=== PATIENT | female | born 1960 | race Caucasian/White ===

== ENCOUNTER 2022-05-23 08:28 | Observation (INO) ==
[2022-05-23] MEDS ORDERED: Ketorolac 30 MG/ML VIAL IVP ONE (08:45)
[2022-05-23] MEDS ORDERED: 0.9 % Sodium Chloride 1,000 ML IVC ONE (08:45)
[2022-05-23 09:13] LABS: Basophils % 0.3 %; Eosinophils % 0.1 %; Hematocrit 35.1 % (35.3-44.9); Hemoglobin 11.7 g/dL (11.5-15.4); Immature Granulocytes % 0.1 % (0-4); Lymphocytes # 2.1 K/mcL (0.6-4.6); Lymphocytes % 15.4 %; Mean Corpuscular HGB Conc 33.3 g/dL (31.6-35.5); Mean Corpuscular Hemoglobin 30.7 pg (28.0-33.3); Mean Corpuscular Volume 92.1 fL (83.0-100.0); Mean Platelet Volume 8.8 fL (9.4-12.4); Monocytes # 0.9 K/mcL (0.0-1.3); Monocytes % 6.5 %; Neutrophils # 10.8 K/mcL (1.6-8.9); Platelet Count 246 K/mcL (140-400); Red Blood Count 3.81 M/mcL (3.82-4.97); Segmented Neutrophils % 77.6 %; White Blood Count 13.9 K/mcL (4.3-11.1)
[2022-05-23 09:20] LABS: INR 1.1; Prothrombin Time 12.8 Seconds (9.4-12.1)
[2022-05-23 09:28] LABS: BUN/Creatinine Ratio 12 (6-26); Blood Urea Nitrogen 9 mg/dL (8-23); Carbon Dioxide 25 mEq/L (23-29); Chloride 95 mEq/L (98-107); Glucose 93 mg/dL (70-105); Osmolality,Calculated 264 (280-300); Sodium 128 mEq/L (136-145)
[2022-05-23 09:31] LABS: Troponin I < 0.03 ng/mL (< 0.04)
[2022-05-23] MEDS ORDERED: Ipratropium 1 PUFF INHALER IH PRN ×2 (09:37→14:45)
[2022-05-23] MEDS ORDERED: Ketorolac 60 MG/2 ML VIAL IM ONE (09:46)
[2022-05-23] MEDS ORDERED: *HR* LORazepam 1 MG TABLET PO ONE (09:53)
[2022-05-23] MEDS ORDERED: Azithromycin 500 MG in 0.9 % Sodium Chloride 250 ML IVPB ONE (10:04)
[2022-05-23] MEDS ORDERED: cefTRIAXone 1,000 MG in 0.9 % Sodium Chloride Mini Bag 100 ML IVPB ONE (10:04)
[2022-05-23] MEDS ORDERED: Ondansetron ODT 4 MG TAB.RAPDIS SL PRN (15:34)
[2022-05-23] MEDS ORDERED: Acetaminophen/Butalbital/CaffeineTABLET PO PRN (15:54)
[2022-05-23] MEDS ORDERED: Patient Taking Own Medication 1 EACH PO PRN (16:00)
[2022-05-23] MEDS: Doxycycline 100 MG in 0.9 % Sodium Chloride Mini Bag 100 ML IVPB SCH (18:07)
[2022-05-23] MEDS: Ipratropium 1 PUFF INHALER IH SCH (19:55)
[2022-05-23] MEDS: Budesonide/Formoterol 160/4.5 1 PUFF INH IH SCH (19:55)
[2022-05-23] MEDS: levETIRAcetam 250 MG TABLET PO SCH (20:17)
[2022-05-23] MEDS: Divalproex (24 HR) 250 MG TABLET PO SCH (20:18)
[2022-05-23] MEDS: Melatonin 3 MG TABLET PO SCH (20:18)
[2022-05-23] MEDS: Ziprasidone 20 MG CAPSULE PO SCH (20:19)
[2022-05-23] MEDS: Lactulose Oral Soln 20 GM/30 ML UDC PO SCH (20:19)
[2022-05-23] MEDS: Folic Acid 1 MG TABLET PO SCH (20:19)
[2022-05-23] MEDS ORDERED: NON-FORMULARY MEDICATION 1 EACH EACH (Fluticasone Propionate [Flovent Diskus] 50 MCG Blst. IH SCH (21:00)
[2022-05-24] MEDS: Patient Taking Own Medication 1 EACH PO SCH ×4 (02:36→19:52)
[2022-05-24 05:40] LABS: Basophils % 0.1 %; Hematocrit 36.5 % (35.3-44.9); Hemoglobin 12.3 g/dL (11.5-15.4); Immature Granulocytes % 0.4 % (0-4); Lymphocytes # 1.6 K/mcL (0.6-4.6); Lymphocytes % 17.9 %; Mean Corpuscular HGB Conc 33.7 g/dL (31.6-35.5); Mean Corpuscular Hemoglobin 30.5 pg (28.0-33.3); Mean Corpuscular Volume 90.6 fL (83.0-100.0); Monocytes # 0.4 K/mcL (0.0-1.3); Monocytes % 4.2 %; Platelet Count 268 K/mcL (140-400); Red Blood Count 4.03 M/mcL (3.82-4.97); Red Cell Distribution Width 12.6 % (11.5-14.5); Segmented Neutrophils % 77.4 %; White Blood Count 9.1 K/mcL (4.3-11.1)
[2022-05-24] MEDS: Doxycycline 100 MG in 0.9 % Sodium Chloride Mini Bag 100 ML IVPB SCH (05:40)
[2022-05-24 05:57] LABS: Alanine Aminotransferase 11 Units/L (7-52); Albumin 3.8 g/dL (3.5-5.7); Albumin/Globulin Ratio 1.4 (1.1-2.2); Alkaline Phosphatase 105 Units/L (34-104); Aspartate Amino Transferase 11 Units/L (13-39); BUN/Creatinine Ratio 14 (6-26); Bilirubin,Total 0.3 mg/dL (0.3-1.0); Blood Urea Nitrogen 10 mg/dL (8-23); Calcium 9.1 mg/dL (8.6-10.3); Carbon Dioxide 23 mEq/L (23-29); Chloride 96 mEq/L (98-107); Globulin 2.8 g/dL (2.4-3.5); Glucose 173 mg/dL (70-105); Magnesium 1.7 mg/dL (1.6-2.6); Osmolality,Calculated 265 (280-300); Potassium 3.9 mEq/L (3.5-5.1); Sodium 126 mEq/L (136-145); Total Protein 6.6 g/dL (6.4-8.9)
[2022-05-24] MEDS ORDERED: Menthol 1 EACH LOZENGE PO PRN (06:45)
[2022-05-24] MEDS: Ipratropium 1 PUFF INHALER IH SCH ×2 (07:50→21:54)
[2022-05-24] MEDS: Budesonide/Formoterol 160/4.5 1 PUFF INH IH SCH ×2 (07:51→21:55)
[2022-05-24] MEDS: levETIRAcetam 250 MG TABLET PO SCH ×2 (08:12→19:50)
[2022-05-24] MEDS: Cholecalciferol (D-3) 1,000 UNIT (25MCG) TABLET PO SCH (08:12)
[2022-05-24] MEDS: methocarbamoL 500 MG TABLET PO SCH (08:13)
[2022-05-24] MEDS: MOM Conc 10 ML UD.LIQ PO SCH ×2 (08:13→08:30)
[2022-05-24] MEDS: Folic Acid 1 MG TABLET PO SCH ×2 (08:13→19:51)
[2022-05-24] MEDS: Lactulose Oral Soln 20 GM/30 ML UDC PO SCH ×4 (08:13→20:52)
[2022-05-24] MEDS: Divalproex (24 HR) 250 MG TABLET PO SCH ×2 (08:13→19:50)
[2022-05-24] MEDS: Thiamine (B-1) 100 MG TABLET PO SCH (08:13)
[2022-05-24] MEDS: Loratadine 10 MG TABLET PO SCH (08:13)
[2022-05-24] MEDS: Ziprasidone 20 MG CAPSULE PO SCH ×3 (08:14→19:50)
[2022-05-24] MEDS ORDERED: dexAMETHasone 4 MG TABLET PO SCH (09:00)
[2022-05-24] MEDS ORDERED: Doxycycline 100 MG CAPSULE PO SCH (09:00)
[2022-05-24] MEDS: Acetaminophen 325 MG TABLET PO PRN (16:14)
[2022-05-24 19:38] VITALS: RESP 16
[2022-05-24] MEDS: levoFLOXacin 750 MG TABLET PO SCH (19:50)
[2022-05-24] MEDS: Melatonin 3 MG TABLET PO SCH (19:50)
[2022-05-25] MEDS: Acetaminophen 325 MG TABLET PO PRN (01:53)
[2022-05-25 05:12] VITALS: BP 116/75; PULSE 88; TEMP 97.8
[2022-05-25 05:41] LABS: BUN/Creatinine Ratio 9 (6-26); Blood Urea Nitrogen 6 mg/dL (8-23); Calcium 9.3 mg/dL (8.6-10.3); Carbon Dioxide 21 mEq/L (23-29); Chloride 98 mEq/L (98-107); Glucose 103 mg/dL (70-105); Osmolality,Calculated 260 (280-300); Potassium 4.4 mEq/L (3.5-5.1); Sodium 126 mEq/L (136-145)
[2022-05-25] MEDS ORDERED: *HR* Enoxaparin 40 MG/0.4 ML SYRINGE SQ SCH (06:00)
[2022-05-25 06:53] LABS: Basophils % 0.3 %; Eosinophils % 0.2 %; Hematocrit 33.3 % (35.3-44.9); Hemoglobin 11.4 g/dL (11.5-15.4); Immature Granulocytes % 0.8 % (0-4); Lymphocytes # 2.8 K/mcL (0.6-4.6); Lymphocytes % 31.3 %; Mean Corpuscular HGB Conc 34.2 g/dL (31.6-35.5); Mean Corpuscular Hemoglobin 31.1 pg (28.0-33.3); Mean Platelet Volume 8.8 fL (9.4-12.4); Monocytes # 0.8 K/mcL (0.0-1.3); Neutrophils # 5.3 K/mcL (1.6-8.9); Platelet Count 283 K/mcL (140-400); Red Blood Count 3.66 M/mcL (3.82-4.97); Red Cell Distribution Width 12.5 % (11.5-14.5); Segmented Neutrophils % 58.4 %; White Blood Count 9.1 K/mcL (4.3-11.1)
[2022-05-25] MEDS: Ipratropium 1 PUFF INHALER IH SCH (07:34)
[2022-05-25] MEDS: Budesonide/Formoterol 160/4.5 1 PUFF INH IH SCH (07:34)
[2022-05-25] MEDS: methocarbamoL 500 MG TABLET PO SCH (08:00)
[2022-05-25] MEDS: Folic Acid 1 MG TABLET PO SCH (08:00)
[2022-05-25] MEDS: Loratadine 10 MG TABLET PO SCH (08:00)
[2022-05-25] MEDS: Ziprasidone 20 MG CAPSULE PO SCH (08:01)
[2022-05-25] MEDS: Thiamine (B-1) 100 MG TABLET PO SCH (08:01)
[2022-05-25] MEDS: Cholecalciferol (D-3) 1,000 UNIT (25MCG) TABLET PO SCH (08:01)
[2022-05-25] MEDS: Divalproex (24 HR) 250 MG TABLET PO SCH (08:01)
[2022-05-25] MEDS: Lactulose Oral Soln 20 GM/30 ML UDC PO SCH (08:03)
[2022-05-25] MEDS: levoFLOXacin 750 MG TABLET PO SCH (08:03)
[2022-05-25] MEDS: levETIRAcetam 250 MG TABLET PO SCH (08:03)
[2022-05-25] MEDS: MOM Conc 10 ML UD.LIQ PO SCH (08:03)
[2022-05-25] MEDS: Patient Taking Own Medication 1 EACH PO SCH (09:42)
[2022-05-25 10:36] VITALS: O2SAT 98
== END 2022-05-25 11:50 ==
LOC: INPGRE 08:28 → EMEROOGRE 08:28 → INPGRE 14:34
PROVIDERS: ADMIT Internal Medicine; ATTEND Internal Medicine